=== PATIENT | female | born 1940 | race African-American/Black ===

== ENCOUNTER → 2016-10-14 | Outpatient (CLI) | payer OTHER ==
[~2016-10-14] MED LIST: ASA/1TAB PO; BIOT25005 PO; METF500T4 PO; OMEP10CA3 PO; VIT1TABL2 PO
--- NOTE | 2016-10-14 16:46 | KCIC ---
PROCEDURE Two-view chest. HISTORY Shortness of air times 2-3 years. COMPARISON Two-view chest November 01, 2014. FINDINGS Atherosclerotic and mildly tortuous thoracic aorta. Cardiac size is normal. Lungs are clear. No pleural effusion or pneumothorax. Degenerative endplate spurring in the thoracic spine. No acute bone abnormality. IMPRESSION No acute cardiopulmonary process. Electronically signed by: Ethan Hartman MD (Oct 14, 2016 16:45:24)
== END | disposition home or self-care (01) ==
LOC: KCIC 16:25
PROVIDERS: ATTEND Specialist
DX: R06.02 Shortness of breath (principal); Z86.11 Personal history of tuberculosis
CPT/HCPCS: 71020

== ENCOUNTER → 2016-10-22 | Outpatient (CLI) | payer OTHER ==
[~2016-10-22] MED LIST changes: +HYDR200T PO; +LOSA25TA4 PO; +REGADENOSON 0.4 MG/5 ML DISP.SYRIN. IV ONE
--- NOTE | 2016-10-23 13:33 | RAD ---
APPROVED REPORT Test Type: Pharmacological Stress Nurse/Tech: Elysia Bland R.N. Test Indications: cp, soa Cardiac History: high chol, htn, Medications: see ehr Medical History: dm Resting ECG: SR Resting Heart Rate: 73 bpm Resting Blood Pressure: 136/77mmHg Pretest Chest Pain: No chest pain Nurse/Tech Notes lungs cta, heart tones regular, good radial pulse Consent: The procedure was explained to the patient in lay terms. Informed consent was witnessed. Raza eout was entered into [employer]. History and Stress Test performed by Elysia Bland R.N. Pharm. Details Pharmacologic stress testing was performed using 0.4mg per 5ml of regadenoson given intravenously ove r 7-10 seconds. Stress Symptoms No chest pain or symptoms.Nausea POST EXERCISE Reason for Termination: Infusion complete Max HR: 102 bpm Max Blood Pressure: 136/67mmHg Chest Pain: No. Arrhythmia: No. ST Change: Yes. minimal st depression in mult leads Imaging Protocol IMAGE PROTOCOL: Rest Tc-99m/stress Tc-99m 1 day Rest: Stress: Viability: Radiopharm.Tc99m [id number] Sestamibi Dose12.6mCi 32.7mCi Img Date 10/22/2016 10/22/2016 Inj-Img [id number]. 60min. Rest Admin Site:IV - Left AntecubitalAdministrator:TOM Parry, ARRT (R)(N) Stress Admin Site: IV - Left AntecubitalAdministrator: Tony Acuna, RT (R)(N) STRESS DATA End Diast. Vol.48.0mlAv. Heart Rate89.0bpm End Syst. Vol.8.0mlCO Index BSA0.0L/min Myocardial Mass95.0gEject. Xrrjiezd52.0% Stress Rates Pk. Fill Rate5.03EDV/secLVtime Pk. Fill 179.39msec Pk. Empty Rate6.13ESV/secLVtime Pk. Otepj485.47msec 07/13 Pk. Fill1.59EDV/sec Stress Scores Regional WT1.00Summed WT13.00 Regional WM0.00Summed WM0.00 LV Perf. Quant 17 Seg. SSS0.00 17 Seg. SRS0.00 17 Seg. SDS0.00 Stress Defect Extent (% LAD)0.00Rest Defect Extent (% LAD)0.00Rev. Defect Extent (% LAD)0.00 Stress Defect Extent (% LCX) 0.00Rest Defect Extent (% LCX)0.00Rev. Defect Extent (% LCX)0.00 Stress Defect Extent (% RCA)0.00Rest Defect Extent (% RCA)0.00Rev. Defect Extent (% RCA)0.00 Stress Defect Extent (% ADRIENNE)0.00Rest Defect Extent (% ADRIENNE)0.00Rev. Defect Extent (% ADRIENNE)0.00 Conclusion 1. No electrocardiographic changes suggestive of myocardial ischemia with pharmacological stress. 2. No perfusion defects to suggest myocardial ischemia or scar. 3. Normal wall motion and wall thickening with an ejection fraction of 80%. 4. Scan indicates low risk for future cardiac events.
== END | disposition home or self-care (01) ==
LOC: NM 07:23
PROVIDERS: ATTEND Specialist
DX: R06.02 Shortness of breath (principal)
CPT/HCPCS: 78452; 93017; 96374; 96375; 96376; A9500; J2785